=== PATIENT | female | born 1960 | race Caucasian/White ===

== ENCOUNTER 2018-07-01 08:39 | Day surgery (SDC) | payer BC | END 2018-07-01 22:50 | disposition home or self-care (01) | LOC: MOI MAM 08:39 | DX: D24.2 Benign neoplasm of left breast (principal); R92.0 Mammographic microcalcification found on diagnostic imaging of breast | CPT/HCPCS: 19081; 88305 ==

== ENCOUNTER → 2019-01-19 | Outpatient (CLI) | payer BC | END | disposition home or self-care (01) | LOC: PLD 08:36 → LAB SHORT 08:36 | DX: D48.5 Neoplasm of uncertain behavior of skin (principal) | CPT/HCPCS: 88305 ==

== ENCOUNTER 2024-03-19 06:01 | Day surgery (SDC) | payer BC ==
[~2024-03-19] VITALS: Ht 160 cm; Wt 104.0 kg
[~2024-03-19 06:01] MED LIST: FOLI1 PO; HYDSUL200 PO; IBUP200; LEUC5 PO; METHOTREXATE2.5 M1 PO
[2024-03-19] MEDS ORDERED: propofoL 60 ML IV ONE (06:07)
[2024-03-19] MEDS ORDERED: NS 500 ML IV SCH (06:10)
[2024-03-19] MEDS ORDERED: NS 0 ML IV ONE (06:21)
[2024-03-19 06:28] VITALS: BP 148/75
[2024-03-19] MEDS ORDERED: Albuterol 2.5 MG/3 ML VIAL INH PRN (06:30)
[2024-03-19] MEDS ORDERED: Atropine Sulfate 0.1 MG/ML 10ML SYR IV PRN (06:30)
[2024-03-19] MEDS ORDERED: Lactated Ringer's 1,000 ML IV SCH (06:30)
[2024-03-19] MEDS ORDERED: Lidocaine HCl 1% 5 ML SYR INJ ONE (06:35)
[2024-03-19] MEDS ORDERED: NS 500 ML IV ONE (06:35)
[2024-03-19] MEDS ORDERED: Ondansetron HCl 2 MG / ML 2ML Vial IV PRN (06:35)
--- NOTE | 2024-03-19 07:37 | NUR ---
03/19/24 0737 [place] History, Chart, Medications and Allergies reviewed before start of procedure.DR MURILLO PROVIDES ANESTHESIA SEE RECORD
[2024-03-19 08:00] VITALS: BP 144/63
--- NOTE | 2024-03-19 08:00 | NUR ---
PT TO DAY SURGERY STEP DOWN FROM COLONOSCOPY; BEDSIDE REPORT RECEIVED. PT IS AWAKE, ALERT AND ORIENTED; ABLE TO MOVE SELF IN BED. VSS. PT HAS NO COMPLAINTS AT THIS TIME.
[2024-03-19 08:15] VITALS: BP 145/66
--- NOTE | 2024-03-19 08:15 | NUR ---
PT TOLERATING PO FLUIDS WELL. Discharge instructions reviewed with patient. Patient verbalizes understanding. Copy given to patient to take home. Patient States Post-Procedure ride home has been arranged.
--- NOTE | 2024-03-19 08:23 | NUR ---
Patient up to Ambulate independently. Gait steady. Discharged via wheelchair to private car for ride home.
== END 2024-03-19 08:24 | disposition home or self-care (01) ==
LOC: ORSCMMR 06:01 → ORD 07:30 → ORSCMMR 07:30
PROVIDERS: Surgery
PROC: 0DJD8ZZ Inspection of Lower Intestinal Tract, Via Natural or Artificial Opening Endoscopic (ICD-10-PCS; principal; 2024-03-19 07:30)
DX: Z12.11 Encounter for screening for malignant neoplasm of colon (principal); K57.30 Diverticulosis of large intestine without perforation or abscess without bleeding; K64.8 Other hemorrhoids; Z79.899 Other long term (current) drug therapy; E66.01 Morbid (severe) obesity due to excess calories; Z68.41 Body mass index [BMI] 40.0-44.9, adult
CPT/HCPCS: J2704; J7030; J7040